=== PATIENT | female | born 1975 | race African-American/Black ===

== ENCOUNTER 2016-08-29 15:17 | Observation (INO) ==
[2016-08-29 15:48] LABS: Basophils % 0.5 %; Eosinophils # 0.2 K/mcL (0.0-0.6); Eosinophils % 2.9 %; Hematocrit 35.2 % (35.3-44.9); Hemoglobin 12.2 g/dL (11.5-15.4); Immature Granulocytes % 0.2 % (0-4); Lymphocytes # 2.9 K/mcL (0.6-4.6); Lymphocytes % 43.5 %; Mean Corpuscular HGB Conc 34.7 g/dL (31.6-35.5); Mean Corpuscular Hemoglobin 29.8 pg (28.0-33.3); Mean Corpuscular Volume 86.1 fL (83.0-100.0); Mean Platelet Volume 12.4 fL (9.4-12.4); Monocytes # 0.5 K/mcL (0.0-1.3); Monocytes % 8.2 %; Platelet Count 161 K/mcL (140-400); Red Blood Count 4.09 M/mcL (3.82-4.97); Red Cell Distribution Width 12.9 % (11.5-14.5); Segmented Neutrophils % 44.7 %
[2016-08-29] MEDS ORDERED: Aspirin 81 MG TAB.CHEW PO ONE (15:53)
[2016-08-29 16:00] LABS: BUN/Creatinine Ratio 8 (6-26); Blood Urea Nitrogen 8 mg/dL (7-20); Calcium 8.9 mg/dL (8.6-10.8); Carbon Dioxide 28 mEq/L (19-29); Chloride 105 mEq/L (98-109); Glucose 220 mg/dL (70-99); Osmolality,Calculated 287 (280-300); Potassium 3.9 mEq/L (3.5-4.5); Sodium 136 mEq/L (136-145); eGFR For African Americans > 60 (> 60); eGFR For Non-African Americans > 60 (> 60)
--- NOTE | 2016-08-29 16:24 | Emergency Department Note ---
Disposition Clinical Impression: Chest pain Qualifiers: Chest pain type: unspecified Qualified Code(s): R07.9 - Chest pain, unspecified Diabetes Qualifiers: Diabetes mellitus type: type 2 Diabetes mellitus complication status: without complication Diabetes mellitus skilled nursing insulin use: unspecified skilled nursing insulin use status Qualified Code(s): E11.9 - Type 2 diabetes mellitus without complications Disposition: Admitted As Inpatient Condition: Good Chest Pain HPI - General Chief Complaint: ED Chest Pain Stated Complaint: Chest pain, "high blood pressure" stomach pain. Time Seen by Provider: 08/29/16 15:21 Source: patient Vital Signs Reviewed: Yes Nursing Notes Reviewed: Yes - History of Present Illness HPI Narrative: She has a history of diabetes who presents with chest pain which began at 3:00 today and is constant and it was worse with exertion when she walked into the emergency department. Does have dyspnea with exertion. No diaphoresis. Does have a pleuritic aspect. No radiation. Does have chronic swelling of the lower extremities. No numbness of the lower extremities but does have numbness of both arms which is chronic from her peripheral neuropathy which she says is from her diabetes. No fever, does have some blurred vision. No rhinorrhea, cough, sneeze, blood in the urine or stool. 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 These are not new. Social history: No smoking, alcohol, drugs. Family history: Positive for heart disease with her father Severity scale (1-10): 9 - Related Data Home Medications Medication Instructions Recorded Confirmed Atorvastatin [Lipitor] 10 mg PO HS 08/29/16 08/29/16 Buspirone HCl [Buspar] 10 mg PO TID PRN 08/29/16 08/29/16 CloNIDine Patch [Catapres-TTS] 0.3 mg TD QWEEK 08/29/16 08/29/16 Clopidogrel [Plavix] 75 mg PO DAILY 08/29/16 08/29/16 Cyclosporine [Restasis Multidose] 1 drop OP BID 08/29/16 08/29/16 Cyprohepatdine [Periactin] 4 mg PO QID 08/29/16 08/29/16 Diclofenac Potassium 50 mg PO BID 08/29/16 08/29/16 Diltiazem HCl [Diltiazem 24Hr Cd] 360 mg PO QAM 08/29/16 08/29/16 Ergocalciferol (VITAMIN D2) 50,000 unit PO QWEEK 08/29/16 08/29/16 [Vitamin D2] Gabapentin [Neurontin] 300 mg PO TID 08/29/16 08/29/16 Insulin ASPART [NovoLOG] 10 unit SQ TIDWM 08/29/16 08/29/16 Insulin Glargine [Lantus] 60 unit SQ BID 08/29/16 08/29/16 Latanoprost [Xalatan] 1 drop OP HS 08/29/16 08/29/16 Levothyroxine [Synthroid] 25 mcg PO 0630 08/29/16 08/29/16 Lisinopril [Zestril] 40 mg PO HS 08/29/16 08/29/16 Lubiprostone [Amitiza] 24 mcg PO DAILY PRN 08/29/16 08/29/16 Naproxen [Naprosyn] 500 mg PO BID 08/29/16 08/29/16 Omeprazole [PriLOSEC] 40 mg PO BID 08/29/16 08/29/16 SUMAtriptan succinate [Imitrex] 6 mg SQ ONCE PRN 08/29/16 08/29/16 Sennosides/Docusate Sodium [Senna 1 each PO DAILY 08/29/16 08/29/16 Plus] Sertraline [Zoloft] 150 mg PO HS 08/29/16 08/29/16 Timolol [Betimol] 1 drop OP TID 08/29/16 08/29/16 hydroCHLOROthiazide 25 mg PO DAILY 08/29/16 08/29/16 [Hydrochlorothiazide] Allergies Allergy/AdvReac Type Severity Reaction Status Date / Time latex Allergy Rash Verified 08/29/16 15:31 Review of Systems: Does have chronic swelling of the lower extremities. No numbness of the lower extremities but does have numbness of both arms which is chronic from her peripheral neuropathy which she says is from her diabetes. No fever, does have some blurred vision. No rhinorrhea, cough, sneeze, blood in the urine or stool. 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 These are not new. Chest Pain PMH - Past Medical History Medical history: Reports: arthritis, diabetes, GERD, glaucoma, hyperlipidemia, hypertension, migraine, thyroid disease Psychiatric history: Reports: no psych history MINERAL TECHNOLOGIST history: Reports: no MINERAL TECHNOLOGIST history - Social History Smoking Status: Never smoker Alcohol use: Reports: none Drug use: Reports: none Physical Exam CONSTITUTIONAL: Well-appearing; well-nourished; A&O X 3, in no apparent distress HEAD: Normocephalic; atraumatic EYES: PERRL, no scleral icterus NOSE: The nose is normal in appearance without rhinorrhea NECK: No JVD or distended neck veins RESP: Normal chest excursion with respiration; breath sounds clear and equal bilaterally; no wheezes, rhonchi, or rales CARD: Regular rhythm, without murmurs, rub or gallop ABD: Non-distended; non-tender, soft, without rigidity, rebound or guarding,no pulsatile mass CHEST: + pain with palpation lower sternum which does cause some facial wincing SKIN: Normal for age and race; warm and dry without diaphoresis ; no apparent lesions EXTREMITIES: Pulses are 2 plus and equal times 4 extremities, no peripheral edema or calf muscle pain - General General appearance: alert, in no apparent distress Course Vital Signs Temperature 98.4 F 08/29/16 15:26 Pulse Rate 81 08/29/16 15:26 Respiratory Rate 16 08/29/16 15:26 Blood Pressure 191/116 08/29/16 15:26 O2 Sat by Pulse Oximetry 100 08/29/16 15:26 Temperature 97.9 F 08/29/16 19:32 Pulse Rate 69 08/29/16 19:32 Respiratory Rate 18 08/29/16 19:32 Blood Pressure 153/93 08/29/16 19:32 O2 Sat by Pulse Oximetry 99 08/29/16 19:32 Oxygen Delivery Oxygen Delivery Room Air Chest Pain - MDM Narrative Medical decision making narrative: Initial labs are reviewed. Additional labs including troponin, BNP, d-dimer are pending. The patient's pain is recent onset and she has not had identical pain in the past this is concerning for cardiac disease as it is exertional and she has associated dyspnea and does have a history of diabetes. I did review the initial EKG which does show normal sinus rhythm with a rate of 79 and does have some nonspecific inferior ST and T changes 1625 - Medical Records Medical records reviewed: Yes I reviewed the patient's medical records. - Lab Data Result diagrams: 08/29/16 15:40 08/29/16 15:40 Lab Results 08/29/16 08/29/16 08/29/16 Range/Units 15:40 15:40 15:40 WBC 6.6 (4.3-11.1) K/mcL RBC 4.09 (3.82-4.97) M/mcL Hgb 12.2 (11.5-15.4) g/dL Hct 35.2 L (35.3-44.9) % MCV 86.1 (83.0-100.0) fL MCH 29.8 (28.0-33.3) pg MCHC 34.7 (31.6-35.5) g/dL RDW 12.9 (11.5-14.5) % Plt Count 161 (140-400) K/mcL MPV 12.4 (9.4-12.4) fL Immature Gran % 0.2 (0-4) % Seg Neutrophils % 44.7 % Lymphocytes % 43.5 % Monocytes % 8.2 % Eosinophils % 2.9 % Basophils % 0.5 % Neutrophils # 3.0 (1.6-8.9) K/mcL Lymphocytes # 2.9 (0.6-4.6) K/mcL Monocytes # 0.5 (0.0-1.3) K/mcL Eosinophils # 0.2 (0.0-0.6) K/mcL Basophils # 0.0 (0.0-0.2) K/mcL D-Dimer (0-500) ng/mLFEU Sodium 136 (136-145) mEq/L Potassium 3.9 (3.5-4.5) mEq/L Chloride 105 (98-109) mEq/L Carbon Dioxide 28 (19-29) mEq/L BUN 8 (7-20) mg/dL Creatinine 0.95 (0.57-1.11) mg/dL Est GFR ( Amer) > 60 (> 60) Est GFR (Non-Af Amer) > 60 (> 60) BUN/Creatinine Ratio 8 (6-26) Glucose 220 H (70-99) mg/dL Calculated Osmolality 287 (280-300) Calcium 8.9 (8.6-10.8) mg/dL Troponin I 0.01 (0-0.03) ng/mL B-Natriuretic Peptide (0-100) pg/mL 08/29/16 08/29/16 Range/Units 15:40 15:40 WBC (4.3-11.1) K/mcL RBC (3.82-4.97) M/mcL Hgb (11.5-15.4) g/dL Hct (35.3-44.9) % MCV (83.0-100.0) fL MCH (28.0-33.3) pg MCHC (31.6-35.5) g/dL RDW (11.5-14.5) % Plt Count (140-400) K/mcL MPV (9.4-12.4) fL Immature Gran % (0-4) % Seg Neutrophils % % Lymphocytes % % Monocytes % % Eosinophils % % Basophils % % Neutrophils # (1.6-8.9) K/mcL Lymphocytes # (0.6-4.6) K/mcL Monocytes # (0.0-1.3) K/mcL Eosinophils # (0.0-0.6) K/mcL Basophils # (0.0-0.2) K/mcL D-Dimer 579 H (0-500) ng/mLFEU Sodium (136-145) mEq/L Potassium (3.5-4.5) mEq/L Chloride (98-109) mEq/L Carbon Dioxide (19-29) mEq/L BUN (7-20) mg/dL Creatinine (0.57-1.11) mg/dL Est GFR ( Amer) (> 60) Est GFR (Non-Af Amer) (> 60) BUN/Creatinine Ratio (6-26) Glucose (70-99) mg/dL Calculated Osmolality (280-300) Calcium (8.6-10.8) mg/dL Troponin I (0-0.03) ng/mL B-Natriuretic Peptide 41 (0-100) pg/mL - Radiology Data Radiology results reviewed: Yes I reviewed the patient's radiology results. Chest X-Ray 08/29/16 15:54 IMPRESSION: Cardiomegaly without acute cardiopulmonary process. D/ / 08/29/2016 16:20:23 Yong Rangel MD / olegario Interpreting Provider: Yong Rangel MD Chest CTA 08/29/16 16:26 IMPRESSION: No evidence of pulmonary embolism or acute pulmonary abnormality. D/ / Yong Rangel MD / Yong Rangel MD Interpreting Provider: Yong Rangel MD - EKG Data EKG attestation: Yes I reviewed and interpreted this EKG.
[2016-08-29] MEDS ORDERED: *HR* Labetalol 20 MG/4 ML SYRINGE IVP ONE (17:08)
[2016-08-29] MEDS ORDERED: GI Cocktail 40 ML EACH PO ONE (17:47)
--- NOTE | 2016-08-29 21:36 | Internal Med History&Physical ---
Date of Encounter: 08/29/16 Time of Encounter: 21:30 Assessment and Plan (1) Chest pain Current visit: Yes Status: Acute Atypical in nature; possibly secondary to GERD in setting of anxiety Claimed to have a stress test roughly a year ago, so no urgent need to repeat at this time; will obtain old records from [facility] Given her lower extremity edema and cardiomegaly on CXR, will obtain echocardiogram Initial troponins negative, will trend x2 Continue home Plavix, increase dose of Lipitor and add SL Nitro PRN for chest pain Qualifiers: Chest pain type: unspecified Qualified Code(s): R07.9 - Chest pain, unspecified (2) Resistant hypertension Current visit: Yes Status: Chronic She is currently on 4 anti-hypertensives and presented with SBP of 191 which was treated with Labetalol in ED Will continue home meds for now and add on PO Hydralazine 25 mg Q8hr If BP remains ucontrolled, may consider switching medications prior to discharge 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 (3) Insulin dependent diabetes mellitus Current visit: Yes Status: Chronic Will continue patient's basal insulin dose at half of her home dose, 30 units BID Lantus on top of ACHS SSI Check A1c in the AM (4) GERD (gastroesophageal reflux disease) Current visit: Yes Status: Chronic Likely cause of her chest pain in setting of anxiety Will continue home Omeprazole Qualifiers: Qualified Code(s): K21.9 - Gastro-esophageal reflux disease without esophagitis (5) Hypothyroidism Current visit: Yes Status: Chronic Continue home synthroid dose Check TSH in AM Qualifiers: Qualified Code(s): E03.9 - Hypothyroidism, unspecified (6) DVT prophylaxis Current visit: Yes Status: Acute Heparin 5000 units BID Internal Medicine - H&P: HPI Chief complaint: chest pain Admitted From: Home Plans for Post Hospital Care: Home History of present illness: Ms. Benavidez is a 41 year old female who presents to emergency department with chest pain. She states it started around 3 PM earlier today while she was just laying down and is substernal in nature describes as stabbing. She also describes shortness of breath with exertion. Patient is to having chronic chest pain which was thought to be related to her GERD. She states this chest pain is different than usual as it is has been more persistent. She recently moved [place] one month ago and previously saw a endless bed drum sander in [place] for angina, and has been cleared for bariatric surgery. She had a stress test about a year ago which was negative for ischemia and is currently on Plavix and multiple blood pressure medications. She states that her blood pressure has been uncontrolled at home over the past month since moving. Patient also complains of lower extremity edema which has been chronic as well but is related to position. Patient reports nausea and vomiting almost daily, and is related to food. Past Med Surg Social Fam HX - Past Medical History Medical history: arthritis, diabetes, GERD, glaucoma, hyperlipidemia, hypertension, migraine, thyroid disease Psychiatric history: no psych history - Social History Smoking Status: Never smoker Smokeless Tobacco Status: No Alcohol use: none Drug use: none - Family History Father Adopted: [place]: MONI Family Member Ethnicity: Non- Living Status: Age at : 70 Hx Family Cardiac Disorders: Yes (HTN / HEART DISEASE) Hx Family Respiratory Disorders: No Hx Family Cancer: No Hx Family GI Disorders: No Hx Family Genitourinary Disorders: No Hx Family Endocrine Disorder: No Hx Family Musculoskeletal Disorders: No Hx Family Neuromuscular Disorders: No Hx Family Neurologic Disorders: No Hx Family HEENT Disorders: No Hx Family Autoimmune Disorders: No Hx Family Reproductive Disorders: No Hx Family Psychosocial Disorders: No Hx Family Medical Disorders: No Internal Medicine - H&P: Meds Atorvastatin [Lipitor] 10 mg PO HS 08/29/16 [History] Buspirone HCl [Buspar] 10 mg PO TID PRN 08/29/16 [History] CloNIDine Patch [Catapres-TTS] 0.3 mg TD QWEEK 08/29/16 [History] Clopidogrel [Plavix] 75 mg PO DAILY 08/29/16 [History] Cyclosporine [Restasis Multidose] 1 drop OP BID 08/29/16 [History] Cyprohepatdine [Periactin] 4 mg PO QID 08/29/16 [History] Diclofenac Potassium 50 mg PO BID 08/29/16 [History] Diltiazem HCl [Diltiazem 24Hr Cd] 360 mg PO QAM 08/29/16 [History] Ergocalciferol (VITAMIN D2) [Vitamin D2] 50,000 unit PO QWEEK 08/29/16 [History] Gabapentin [Neurontin] 300 mg PO TID 08/29/16 [History] Insulin ASPART [NovoLOG] 10 unit SQ TIDWM 08/29/16 [History] Insulin Glargine [Lantus] 60 unit SQ BID 08/29/16 [History] Latanoprost [Xalatan] 1 drop OP HS 08/29/16 [History] Levothyroxine [Synthroid] 25 mcg PO 0630 08/29/16 [History] Lisinopril [Zestril] 40 mg PO HS 08/29/16 [History] Lubiprostone [Amitiza] 24 mcg PO DAILY PRN 08/29/16 [History] Naproxen [Naprosyn] 500 mg PO BID 08/29/16 [History] Omeprazole [PriLOSEC] 40 mg PO BID 08/29/16 [History] SUMAtriptan succinate [Imitrex] 6 mg SQ ONCE PRN 08/29/16 [History] Sennosides/Docusate Sodium [Senna Plus] 1 each PO DAILY 08/29/16 [History] Sertraline [Zoloft] 150 mg PO HS 08/29/16 [History] Timolol [Betimol] 1 drop OP TID 08/29/16 [History] hydroCHLOROthiazide [Hydrochlorothiazide] 25 mg PO DAILY 08/29/16 [History] Allergies latex Allergy (Verified 08/29/16 15:31) Rash All Systems PM: A 10-system review of systems was performed and is negative for pertinent findings except as documented above in the HPI. - Constitutional Constitutional: no chills, no fever(s), no night sweats - EENT Eyes: no change in vision, no discharge, no pain, no photophobia Ears: no ear discharge, no ear pain, no tinnitus Nose, mouth and throat: no dysphagia, no nasal discharge, no neck pain, no sore throat - Cardiovascular Cardiovascular ROS IM: chest pain, dyspnea on exertion, no diaphoresis, no dyspnea, no lightheadedness, no palpitations, no syncope - Respiratory Respiratory: dyspnea on exertion, pain on inspiration, no cough, no dyspnea, no wheezing, no excessive phlegm production - Gastrointestinal Gastrointestinal: abdominal pain (lower bilaterally), constipation, nausea, vomiting, no diarrhea, no hematemesis, no hematochezia, no melena - Genitourinary Genitourinary: urinary hesitancy, no change in urinary stream, no dysuria, no flank pain, no hematuria - Musculoskeletal Musculoskeletal ROS IM: numbness, tingling - Integumentary Integumentary IM: no rash, no unusual bruising - Neurological Neurological ROS: headache(s), numbness, tingling, no confusion, no convulsions , no focal weakness, no tremor(s) - Constitutional Vitals: Temp Pulse Resp BP Pulse Ox 97.9 F 69 18 153/93 99 08/29/16 19:32 08/29/16 19:32 08/29/16 19:32 08/29/16 19:32 08/29/16 19:32 General appearance: Present: cooperative, morbidly obese, pleasant, no acute distress, answers questions appropriately - Head Head exam: Present: atraumatic, normocephalic - Eye Eye exam: Present: PERRL, conjuntiva pink, sclera anicteric - Neck Neck exam general surgery: Present: supple, trachea midline. Absent: lymphadenopathy - Respiratory Respiratory exam: Present: CTAB. Absent: accessory muscle use, rales, rhonchi, wheezes - Cardiovascular Cardiovascular exam: Present: distant heart sounds, RRR, +S1, +S2. Absent: diastolic murmur, gallop, rubs, systolic murmur - GI/Abdominal GI/Abdominal exam: Present: normal bowel sounds, soft, tenderness (lower bilaterally), no peritoneal signs. Absent: distended - Extremities Exam Extremities exam: Present: pedal edema (trace pitting bilaterally), warm, radial pulses palpable and symetrical. Absent: calf tenderness, cyanotic - Neurological Exam Neurological exam: Present: alert, no focal deficits. Absent: facial droop, speech deficit - Skin Skin exam: Present: dry, intact Internal Med - H&P Results - Labs CBC & Chem 7: 08/29/16 15:40 08/29/16 15:40
[2016-08-29] MEDS ORDERED: Dextrose Gel 15 GM PO PRN ×2 (21:55)
[2016-08-29] MEDS ORDERED: Ondansetron ODT 4 MG TAB.RAPDIS SL PRN (21:55)
[2016-08-29] MEDS ORDERED: Nitroglycerin 0.4 MG TAB.SUBL SL PRN (21:55)
[2016-08-29] MEDS ORDERED: Naloxone 0.4 MG/ML INJ IVP PRN (21:55)
[2016-08-29] MEDS ORDERED: D5% in Water 1,000 ML IVC PRN (21:55)
[2016-08-29] MEDS ORDERED: *HR* Dextrose 50 % in Water (Syg) 50 ML SYRINGE IVP PRN (21:55)
[2016-08-29] MEDS ORDERED: Acetaminophen 325 MG TABLET PO PRN (21:55)
[2016-08-29] MEDS ORDERED: Lubiprostone [Amitiza] 24 MCG PO PRN (21:59)
[2016-08-29] MEDS ORDERED: Ipratropium/Albuterol Neb 3 ML IH PRN (21:59)
[2016-08-29] MEDS ORDERED: CloNIDine Patch 0.3 MG PATCH (WEEKLY) TD SCH (22:00)
[2016-08-29] MEDS: Insulin LISPRO 300 UNITS/3 ML VIAL SQ SCH (22:34)
[2016-08-29] MEDS: hydrALAZINE 25 MG TABLET PO SCH (23:00)
[2016-08-29] MEDS: Lisinopril 20 MG TABLET PO SCH (23:00)
[2016-08-30] MEDS: *HR* OxyCODONE/APAP 5/325 TABLET PO PRN ×3 (03:59→21:39)
[2016-08-30 06:02] LABS: Basophils % 0.3 %; Eosinophils # 0.2 K/mcL (0.0-0.6); Eosinophils % 2.3 %; Hematocrit 34.8 % (35.3-44.9); Hemoglobin 11.8 g/dL (11.5-15.4); Immature Granulocytes % 0.1 % (0-4); Lymphocytes # 2.9 K/mcL (0.6-4.6); Lymphocytes % 41.6 %; Mean Corpuscular HGB Conc 33.9 g/dL (31.6-35.5); Mean Corpuscular Hemoglobin 29.4 pg (28.0-33.3); Mean Corpuscular Volume 86.6 fL (83.0-100.0); Monocytes # 0.6 K/mcL (0.0-1.3); Monocytes % 8.3 %; Neutrophils # 3.3 K/mcL (1.6-8.9); Platelet Count 136 K/mcL (140-400); Red Blood Count 4.02 M/mcL (3.82-4.97); Red Cell Distribution Width 12.9 % (11.5-14.5); Segmented Neutrophils % 47.4 %
[2016-08-30 06:05] LABS: BUN/Creatinine Ratio 10 (6-26); Blood Urea Nitrogen 9 mg/dL (7-20); Calcium 9.1 mg/dL (8.6-10.8); Carbon Dioxide 26 mEq/L (19-29); Chloride 104 mEq/L (98-109); Chol/HDL Ratio 4.5 (0-4.9); Cholesterol 189 mg/dL (< 200); Glucose 258 mg/dL (70-99); HDL Cholesterol 42 mg/dL (40-59); Hemoglobin A1C 9.3 %; LDL Cholesterol,Calculated 123 mg/dL (0-99); Osmolality,Calculated 290 (280-300); Potassium 4.1 mEq/L (3.5-4.5); Sodium 136 mEq/L (136-145); Triglycerides 121 mg/dL (< 150); eGFR For African Americans > 60 (> 60); eGFR For Non-African Americans > 60 (> 60)
[2016-08-30] MEDS: hydrALAZINE 25 MG TABLET PO SCH ×3 (06:18→21:40)
[2016-08-30] MEDS: *HR* Heparin 5,000 UNIT/ML VIAL SQ SCH ×2 (06:18→17:10)
[2016-08-30] MEDS: Levothyroxine 25 MCG TABLET PO SCH (06:18)
[2016-08-30 06:27] LABS: Thyroid Stimulating Hormone 2.265 mcIU/mL (0.350-4.840)
[2016-08-30] MEDS: Insulin LISPRO 300 UNITS/3 ML VIAL SQ SCH ×4 (08:50→21:41)
[2016-08-30] MEDS: Gabapentin 300 MG CAPSULE PO SCH ×3 (08:51→21:40)
[2016-08-30] MEDS: Diltiazem CD (24hr) 180 MG CAPSULE PO SCH (08:51)
[2016-08-30] MEDS: Sennosides/Docusate Sodium TABLET PO SCH (08:51)
[2016-08-30] MEDS: Insulin DETEMIR 100 UNIT/ML X5UNITS SQ SCH ×2 (08:58→21:40)
[2016-08-30] MEDS ORDERED: NON-FORMULARY MEDICATION 1 EACH EACH (Insulin Glargine [Lantus] 30 UNIT) SQ SCH (09:00)
[2016-08-30] MEDS: hydroCHLOROthiazide 25 MG TABLET PO SCH (09:03)
[2016-08-30] MEDS: Cyprohepatdine 4 MG TABLET PO SCH ×4 (10:05→21:40)
[2016-08-30 10:29] LABS: Bilirubin,Urine Negative (Negative); Blood,Urine Negative (Negative); Clarity,Urine Clear (Clear); Color,Urine Yellow (Yellow); Glucose,Urine (UA) >=1000 mg/dL (Normal); Ketones,Urine Negative (Negative); Leukocyte Esterase,Urine Negative (Negative); Nitrite,Urine Negative (Negative); Protein,Urine Negative (Neg-Trace); Specific Gravity,Urine 1.024 (1.010-1.025); Urobilinogen,Urine Normal (Normal)
--- NOTE | 2016-08-30 17:16 | Electrocardiograph Report ---
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
--- NOTE | 2016-08-30 18:46 | Internal Med Progress Note ---
Date of Encounter: 08/30/16 Time of Encounter: 15:30 - Assessment and plan (1) Chest pain Current Visit: Yes Status: Acute Assessment and plan: Patient stating she never actually had any chest pain. She is complaining of lower abdominal pain. Chest x-ray negative. CTA negative. Troponins negative 3. Echocardiogram unremarkable with ejection fraction of 60% and mild diastolic dysfunction. Low suspicion for acute coronary syndrome, we will investigate abdominal etiologies. Qualifiers: Chest pain type: unspecified Qualified Code(s): R07.9 - Chest pain, unspecified (2) Abdominal pain Current Visit: Yes Status: Acute Assessment and plan: Patient complaining of severe pain across her lower abdomen. He states the pain is constant. She states her last bowel movement was 2 days ago and that it was normal. Patient stating she has chronic constipation but this pain feels different. She is not currently sexually active. She had PAD 15 years ago but no further issues. No indication to perform a pelvic examination at this time. We will obtain an abdominal CT to further evaluate. Urinalysis was negative except for glucose. Qualifiers: Abdominal location: lower abdomen, unspecified Qualified Code(s): R10.30 - Lower abdominal pain, unspecified (3) Insulin dependent diabetes mellitus Current Visit: Yes Status: Chronic Assessment and plan: Uncontrolled with an A1c of 9.3%. Continue sliding scale while admitted. (4) Resistant hypertension Current Visit: Yes Status: Chronic Assessment and plan: Hypertensive at times however the patient is still in severe pain. We will continue to address her pain and we will adjust her antihypertensive medications if indicated once her pain is better controlled. (5) DVT prophylaxis Current Visit: Yes Status: Acute Assessment and plan: Subcutaneous heparin (6) Hypothyroidism Current Visit: Yes Status: Chronic Assessment and plan: TSH normal Qualifiers: Hypothyroidism type: unspecified Qualified Code(s): E03.9 - Hypothyroidism , unspecified (7) GERD (gastroesophageal reflux disease) Current Visit: Yes Status: Chronic Assessment and plan: Denies current symptoms Qualifiers: Esophagitis presence: without esophagitis Qualified Code(s): K21.9 - Gastro -esophageal reflux disease without esophagitis (8) Morbid obesity with BMI of 50.0-59.9, adult Current Visit: Yes Status: Chronic - Subjective Interval history: Patient seen and examined. On examination, patient initially asleep supine in bed. Patient awakened easily to voice and complained of pain across her lower abdomen. She denies chest pain or shortness of breath. - Constitutional Vitals: Temp Pulse Resp BP Pulse Ox 98.2 F 65 16 152/73 93 08/30/16 18:35 08/30/16 18:35 08/30/16 18:35 08/30/16 18:35 08/30/16 18:35 General appearance: Present: cooperative, morbidly obese, pleasant, no acute distress, answers questions appropriately - Head Head exam: Present: atraumatic, normocephalic - Eye Eye exam: Present: PERRL, conjuntiva pink, sclera anicteric Pupils: Present: PERRL - Neck Neck exam general surgery: Present: supple, trachea midline. Absent: lymphadenopathy - Respiratory Respiratory exam: Present: CTAB. Absent: accessory muscle use, rales, respiratory distress, rhonchi, wheezes - Cardiovascular Cardiovascular exam: Present: RRR, +S1, +S2. Absent: diastolic murmur, gallop, rubs, systolic murmur - GI/Abdominal GI/Abdominal exam: Present: normal bowel sounds, soft, tenderness (lower abd), no peritoneal signs. Absent: distended - Extremities Exam Extremities exam: Present: warm, radial pulses palpable and symetrical. Absent : calf tenderness, cyanotic, pedal edema - Neurological Exam Neurological exam: Present: alert, CN II-XII intact, oriented X3, no focal deficits, strengths equal and symetr throughout. Absent: pronater drift, facial droop, speech deficit - Skin Skin exam: Present: dry, intact, pallor, warm Internal Medicine: Result - Labs CBC & Chem 7: 08/30/16 05:10 08/31/16 04:00 Labs: Short CBC 08/30/16 Range/Units 05:10 WBC 7.0 (4.3-11.1) K/mcL Hgb 11.8 (11.5-15.4) g/dL Hct 34.8 L (35.3-44.9) % Plt Count 136 L (140-400) K/mcL Neutrophils # 3.3 (1.6-8.9) K/mcL BMP 08/30/16 05:10 Sodium 136 Potassium 4.1 Chloride 104 Carbon Dioxide 26 BUN 9 Creatinine 0.90 Glucose 258 H Calcium 9.1 Cardiac Enzymes 08/29/16 08/30/16 Range/Units 22:12 05:10 Troponin I 0.00 0.00 (0-0.03) ng/mL Urine 08/30/16 Range/Units 10:19 Urine Color Yellow (Yellow) Urine Clarity Clear (Clear) Urine pH 6.0 (5.0-8.0) pH Units Ur Specific [place] 1.024 (1.010-1.025) Urine Protein Negative (Neg-Trace) mg/dL Urine Glucose (UA) >=1000 H (Normal) mg/dL - ABG Interpretation ABG results: PT/INR, D-dimer D-Dimer 579 ng/mLFEU (0-500) H 08/29/16 15:40 - VTE Reasons for not Prescribing Prophylaxis: Treatment not Indicated - Low risk for VTE Consult Discharge Plan - Plan Referrals: Saira Greer [Other]
[2016-08-30] MEDS ORDERED: *HR* Morphine 2 MG/ML SYRINGE IVP PRN (18:51)
[2016-08-30] MEDS: Lisinopril 20 MG TABLET PO SCH (21:40)
[2016-08-31] MEDS: *HR* OxyCODONE/APAP 5/325 TABLET PO PRN ×3 (03:59→23:26)
[2016-08-31 05:00] LABS: Alanine Aminotransferase 10 Units/L (0-55); Albumin 2.8 g/dL (3.5-5.0); Albumin/Globulin Ratio 0.7 (1.1-2.2); Alkaline Phosphatase 82 Units/L (38-126); Amylase 46 Units/L (25-125); Aspartate Amino Transferase 8 Units/L (5-34); BUN/Creatinine Ratio 11 (6-26); Bilirubin,Direct 0.2 mg/dL (0.0-0.5); Bilirubin,Indirect 0.4 mg/dL (0.0-1.2); Bilirubin,Total 0.6 mg/dL (0.2-1.2); Blood Urea Nitrogen 10 mg/dL (7-20); Calcium 8.9 mg/dL (8.6-10.8); Carbon Dioxide 27 mEq/L (19-29); Chloride 104 mEq/L (98-109); Globulin 3.9 g/dL (2.4-3.5); Glucose 216 mg/dL (70-99); Lipase < 10 Units/L (8-78); Osmolality,Calculated 290 (280-300); Potassium 4.1 mEq/L (3.5-4.5); Sodium 137 mEq/L (136-145); Total Protein 6.7 g/dL (6.0-8.3); eGFR For African Americans > 60 (> 60); eGFR For Non-African Americans > 60 (> 60)
[2016-08-31] MEDS: Levothyroxine 25 MCG TABLET PO SCH (05:55)
[2016-08-31] MEDS: *HR* Heparin 5,000 UNIT/ML VIAL SQ SCH ×2 (05:55→17:27)
[2016-08-31] MEDS: hydrALAZINE 25 MG TABLET PO SCH ×3 (05:55→21:23)
[2016-08-31] MEDS: Insulin LISPRO 300 UNITS/3 ML VIAL SQ SCH ×4 (08:23→21:22)
[2016-08-31] MEDS: Sennosides/Docusate Sodium TABLET PO SCH (09:23)
[2016-08-31] MEDS: hydroCHLOROthiazide 25 MG TABLET PO SCH (09:23)
[2016-08-31] MEDS: Diltiazem CD (24hr) 180 MG CAPSULE PO SCH (09:23)
[2016-08-31] MEDS: Gabapentin 300 MG CAPSULE PO SCH ×3 (09:23→21:24)
[2016-08-31] MEDS: Insulin DETEMIR 100 UNIT/ML X5UNITS SQ SCH ×2 (09:28→21:22)
[2016-08-31] MEDS: Cyprohepatdine 4 MG TABLET PO SCH ×4 (09:29→21:24)
[2016-08-31] MEDS: Simethicone 80 MG TAB.CHEW PO SCH ×3 (12:35→21:23)
--- NOTE | 2016-08-31 14:52 | Internal Med Progress Note ---
Date of Encounter: 08/31/16 Time of Encounter: 10:30 - Assessment and plan (1) Chest pain Current Visit: Yes Status: Acute Assessment and plan: Patient stating she never actually had any chest pain. She is complaining of lower abdominal pain. Chest x-ray negative. CTA negative. Troponins negative 3. Echocardiogram unremarkable with ejection fraction of 60% and mild diastolic dysfunction. Low suspicion for acute coronary syndrome, we will investigate abdominal etiologies. Qualifiers: Chest pain type: unspecified Qualified Code(s): R07.9 - Chest pain, unspecified (2) Abdominal pain Current Visit: Yes Status: Acute Assessment and plan: Patient complaining of severe pain across her lower abdomen. He states the pain is constant. She states her last bowel movement was 3 days ago and that it was normal and she is now requesting an increase in her [place] to have a bowel movement. Patient stating she has chronic constipation but this pain feels different. She is not currently sexually active. She had PID 15 years ago but no further issues. No indication to perform a pelvic examination at this time. We will obtain an abdominal CT to further evaluate. Urinalysis was negative except for glucose. Abdominal CT revealing soft tissue density in the cecum that could be a mass or it could be a stool ball. Will give her an enema and reevaluate. 3mm nodule noted to RML- patient low risk nonsmoker- followup outpatient. Will await for her to move her bowels then repeat an acute abdominal series to rule out a mass. Possible discharge pending clinical outcomes. ITS Impressions Abdomen/Pelvis CT 08/30/16 18:49 IMPRESSION: 1. No acute abnormality in the abdomen or pelvis. 2. 2.3 cm probable uterine fundal fibroid. 3. 4.2 cm soft tissue density in the cecum most likely represents a stool ball although a mass is not excluded. Consider nonemergent evaluation with CT with rectal contrast or colonoscopy. 4. 3 mm nodule in the right middle lobe. Further evaluation could be obtained with nonemergent CT chest without contrast. D/ / Phi Ken MD / Phi Ken MD Interpreting Provider: Phi Ken MD . (3) Insulin dependent diabetes mellitus Current Visit: Yes Status: Chronic Assessment and plan: Uncontrolled with an A1c of 9.3%. Continue sliding scale while admitted. (4) Resistant hypertension Current Visit: Yes Status: Chronic Assessment and plan: Borderline Hypertensive at this time, however the patient is still in pain. We will continue to address her pain and we will adjust her antihypertensive medications if indicated once her pain is better controlled. (5) DVT prophylaxis Current Visit: Yes Status: Acute Assessment and plan: Subcutaneous heparin (6) Hypothyroidism Current Visit: Yes Status: Chronic Assessment and plan: TSH normal (7) GERD (gastroesophageal reflux disease) Current Visit: Yes Status: Chronic Assessment and plan: Denies current symptoms (8) Morbid obesity with BMI of 50.0-59.9, adult Current Visit: Yes Status: Chronic - Subjective Interval history: Patient seen and examined. On examination, patient awake and sitting upright in bed. She states that she feels better than yesterday but still is having pain across her lower abdomen. She states that she has been able to eat a bit, but is endorsing a decreased appetite. - Constitutional Vitals: Temp Pulse Resp BP Pulse Ox 98.3 F 72 16 117/72 98 08/31/16 11:24 08/31/16 11:24 08/31/16 11:24 08/31/16 11:24 08/31/16 11:24 General appearance: Present: cooperative, A&O X 3, morbidly obese, pleasant, no acute distress, answers questions appropriately - Head Head exam: Present: atraumatic, normocephalic - Eye Eye exam: Present: PERRL, conjuntiva pink, sclera anicteric Pupils: Present: PERRL - Neck Neck exam general surgery: Present: supple, trachea midline. Absent: lymphadenopathy - Respiratory Respiratory exam: Present: decreased breath sounds. Absent: accessory muscle use, rales, respiratory distress, rhonchi, wheezes - Cardiovascular Cardiovascular exam: Present: RRR, +S1, +S2. Absent: diastolic murmur, gallop, rubs, systolic murmur - GI/Abdominal GI/Abdominal exam: Present: hyperactive bowel sounds, soft, tenderness (lower abd), no peritoneal signs. Absent: distended - Extremities Exam Extremities exam: Present: warm, radial pulses palpable and symetrical. Absent : calf tenderness, cyanotic, pedal edema - Neurological Exam Neurological exam: Present: alert, CN II-XII intact, oriented X3, no focal deficits, strengths equal and symetr throughout. Absent: pronater drift, facial droop, speech deficit - Skin Skin exam: Present: dry, intact, pallor, warm Internal Medicine: Result - Labs CBC & Chem 7: 08/30/16 05:10 08/31/16 04:00 Labs: BMP 08/31/16 04:00 Sodium 137 Potassium 4.1 Chloride 104 Carbon Dioxide 27 BUN 10 Creatinine 0.93 Glucose 216 H Calcium 8.9 Liver Function 08/31/16 Range/Units 04:00 Total Bilirubin 0.6 (0.2-1.2) mg/dL Direct Bilirubin 0.2 (0.0-0.5) mg/dL AST 8 (5-34) Units/L ALT 10 (0-55) Units/L Alkaline Phosphatase 82 (38-126) Units/L Albumin 2.8 L (3.5-5.0) g/dL - ABG Interpretation ABG results: PT/INR, D-dimer D-Dimer 579 ng/mLFEU (0-500) H 08/29/16 15:40 - Impressions Impressions Abdomen/Pelvis CT 08/30/16 18:49 IMPRESSION: 1. No acute abnormality in the abdomen or pelvis. 2. 2.3 cm probable uterine fundal fibroid. 3. 4.2 cm soft tissue density in the cecum most likely represents a stool ball although a mass is not excluded. Consider nonemergent evaluation with CT with rectal contrast or colonoscopy. 4. 3 mm nodule in the right middle lobe. Further evaluation could be obtained with nonemergent CT chest without contrast. D/ / Phi Ken MD / Phi Ken MD Interpreting Provider: Phi Ken MD - VTE Reasons for not Prescribing Prophylaxis: Treatment not Indicated - Low risk for VTE Consult Discharge Plan - Plan Referrals: Saira Greer [Other]
[2016-08-31] MEDS: Bisacodyl 10 MG RECTAL SUPPOSITORY RC SCH (15:58)
[2016-08-31] MEDS: Lisinopril 20 MG TABLET PO SCH (21:24)
[2016-09-01] MEDS: *HR* Heparin 5,000 UNIT/ML VIAL SQ SCH (05:42)
[2016-09-01] MEDS: Levothyroxine 25 MCG TABLET PO SCH (05:42)
[2016-09-01] MEDS: hydrALAZINE 25 MG TABLET PO SCH ×2 (05:42→14:07)
[2016-09-01] MEDS: Insulin LISPRO 300 UNITS/3 ML VIAL SQ SCH ×2 (08:14→12:27)
[2016-09-01] MEDS: Gabapentin 300 MG CAPSULE PO SCH ×2 (08:15→14:07)
[2016-09-01] MEDS: Diltiazem CD (24hr) 180 MG CAPSULE PO SCH (08:15)
[2016-09-01] MEDS: Cyprohepatdine 4 MG TABLET PO SCH ×2 (08:15→14:07)
[2016-09-01] MEDS: hydroCHLOROthiazide 25 MG TABLET PO SCH (08:16)
[2016-09-01] MEDS: Simethicone 80 MG TAB.CHEW PO SCH ×2 (08:16→14:07)
[2016-09-01] MEDS: Sennosides/Docusate Sodium TABLET PO SCH (08:16)
[2016-09-01] MEDS: Insulin DETEMIR 100 UNIT/ML X5UNITS SQ SCH (09:36)
[2016-09-01] MEDS: Bisacodyl 10 MG RECTAL SUPPOSITORY RC SCH (09:36)
--- NOTE | 2016-09-01 10:49 | Discharge Summary ---
Date of Encounter: 09/01/16 Time of Encounter: 09:30 - Discharge Diagnosis (1) Chest pain Priority: Primary Status: Ruled-out Comments: Patient stating she never actually had any chest pain. She complained of lower abdominal pain. Chest x-ray negative. CTA negative. Troponins negative 3. Echocardiogram unremarkable with ejection fraction of 60% and mild diastolic dysfunction. Low suspicion for acute coronary syndrome Qualifiers: Chest pain type: unspecified Qualified Code(s): R07.9 - Chest pain, unspecified (2) Abdominal pain Priority: Primary Status: Acute Comments: Patient moved her bowels several times and repeat imaging unremarkable. Likely secondary to severe constipation. Follow-up outpatient. (3) Insulin dependent diabetes mellitus Priority: Secondary Status: Chronic Comments: Uncontrolled with an A1c of 9.3%. Follow-up outpatient (4) Resistant hypertension Priority: Secondary Status: Chronic Comments: Normotensive on day of discharge. Check blood pressure daily at home, and follow-up outpatient. (5) DVT prophylaxis Priority: Primary Status: Acute Comments: Subcutaneous had been while admitted (6) Hypothyroidism Priority: Secondary Status: Chronic Comments: TSH normal (7) GERD (gastroesophageal reflux disease) Priority: Secondary Status: Chronic Comments: Denied current symptoms (8) Morbid obesity with BMI of 50.0-59.9, adult Priority: Secondary Status: Chronic - Discharge Medications Prescriptions: Cyclobenzaprine [Flexeril] 10 mg PO BID PRN #20 tablet PRN Reason: Spasms hydrALAZINE [HydrALAZINE] 25 mg PO Q8H #90 tab Sennosides/Docusate Sodium [Senna Plus] 1 each PO BID #60 Simethicone [Gas-X] 80 mg PO TID PRN #30 PRN Reason: bloating Home Medications: Atorvastatin [Lipitor] 10 mg PO HS 08/29/16 [History] Buspirone HCl [Buspar] 10 mg PO TID PRN 08/29/16 [History] CloNIDine Patch [Catapres-Tts] 0.3 mg TD QWEEK 08/29/16 [History] Clopidogrel [Plavix] 75 mg PO DAILY 08/29/16 [History] Cyclosporine [Restasis Multidose] 1 drop OP BID 08/29/16 [History] Cyprohepatdine [Periactin] 4 mg PO QID 08/29/16 [History] Diclofenac Potassium 50 mg PO BID 08/29/16 [History] Diltiazem HCl [Diltiazem 24Hr Cd] 360 mg PO QAM 08/29/16 [History] Ergocalciferol (VITAMIN D2) [Vitamin D2] 50,000 unit PO QWEEK 08/29/16 [History] Gabapentin [Neurontin] 300 mg PO TID 08/29/16 [History] Insulin ASPART [NovoLOG] 10 unit SQ TIDWM 08/29/16 [History] Insulin Glargine [Lantus] 60 unit SQ BID 08/29/16 [History] Latanoprost [Xalatan] 1 drop OP HS 08/29/16 [History] Levothyroxine [Synthroid] 25 mcg PO 0630 08/29/16 [History] Lisinopril [Zestril] 40 mg PO HS 08/29/16 [History] Lubiprostone [Amitiza] 24 mcg PO DAILY PRN 08/29/16 [History] Naproxen [Naprosyn] 500 mg PO BID 08/29/16 [History] Omeprazole [PriLOSEC] 40 mg PO BID 08/29/16 [History] SUMAtriptan succinate [Imitrex] 6 mg SQ ONCE PRN 08/29/16 [History] Sertraline [Zoloft] 150 mg PO HS 08/29/16 [History] Timolol [Betimol] 1 drop OP TID 08/29/16 [History] hydroCHLOROthiazide [Hydrochlorothiazide] 25 mg PO DAILY 08/29/16 [History] Cyclobenzaprine [Flexeril] 10 mg PO BID PRN #20 tablet 09/01/16 [Rx] Sennosides/Docusate Sodium [Senna Plus] 1 each PO BID #60 09/01/16 [Rx] Simethicone [Gas-X] 80 mg PO TID PRN #30 09/01/16 [Rx] hydrALAZINE [HydrALAZINE] 25 mg PO Q8H #90 tab 09/01/16 [Rx] Allergies/Adverse Reactions: Allergies latex Allergy (Verified 08/29/16 15:31) Rash Procedures/tests Complete & Pending: Procedures Performed prior 72 hours Category Date Time Status CT abd pelvis w iv no oral [CT] Routine Cat Scan 08/30/16 18:49 Completed EV echocardiogram Routine Y 08/30/16 21:55 Completed Date of admission: 08/29/16 18:11 Primary care physician: Saira Greer Discharging clinician: Esther Goff Anticipated date of discharge: 09/01/16 - Patient Status Disposition: Home, Self-Care Condition: Good Functional capacity at discharge: independent ambulation Overall status at discharge: patient is back to baseline - Discharge Instructions Follow Up With: Saira Greer [Other] Additional Instructions: Follow-up with primary care provider within one to 2 weeks, check blood pressure daily and keep a log - Diet and Activity Activity: increase activity as tolerated Diet: diabetic diet, low fat, low cholesterol, low salt diet Hospital course: Ms. Benavidez is a 41 year old female with past medical history of uncontrolled diabetes, GERD, glaucoma, hyperlipidemia, hypertension, migraines, hypothyroidism, never smoker, morbid obesity BMI 55. Patient presented to the emergency department with chest pain. Patient stating that she was laying down on the day of presentation when she began to experience substernally located chest pain described as stabbing. Patient also endorsed shortness of breath with exertion. Patient thought she was having chronic chest pain secondary to her chronic GERD but she states this chest pain is different than her usual pain and has been more persistent. Of note, she [place] to [place] one month prior to presentation and she has seen her network technician in [place] for angina and she had been cleared for bariatric surgery. She also had a negative stress test 1 year ago. Blood pressure has been difficult to control outpatient despite multiple antihypertensive medications. Workup in the emergency department unremarkable. Chest x-ray negative. CTA negative. Patient was admitted to the hospitalist service for further evaluation and management. Troponins negative 3. Echocardiogram unremarkable with ejection fraction of 60% and mild diastolic dysfunction. ACS ruled out. In further conversation with the patient, she stated that she never actually had chest pain but rather she had severe pain across her lower abdomen. She stated the pain was constant and felt different than her regular constipation pain. Abdominal CT obtained which revealed a soft tissue density in the cecum that could either be a mass or could be a stool ball. She was then given an enema, had several bowel movements, and repeat imaging was negative for acute processes suggestive of a stool ball rather than a mass. She also had a pulmonary nodule-never smoker, follow up outpatient. Patient also had lower back spasms with her constipation she was given a short supply of muscle relaxants. She was able to tolerate a regular diet while admitted. Urinalysis was negative except for glucose. Regarding her blood pressure, hydralazine was added to her regimen and she was normotensive on discharge. She was discharged home in stable condition with close outpatient follow-up recommended. ITS Impressions Chest X-Ray 08/29/16 15:54 IMPRESSION: Cardiomegaly without acute cardiopulmonary process. D/ / 08/29/2016 16:20:23 Yong Rangel MD / olegario Interpreting Provider: Yong Rangel MD Chest CTA 08/29/16 16:26 IMPRESSION: No evidence of pulmonary embolism or acute pulmonary abnormality. D/ / Yong Rangel MD / Yong Rangel MD Interpreting Provider: Yong Rangle MD Abdomen/Pelvis CT 08/30/16 18:49 IMPRESSION: 1. No acute abnormality in the abdomen or pelvis. 2. 2.3 cm probable uterine fundal fibroid. 3. 4.2 cm soft tissue density in the cecum most likely represents a stool ball although a mass is not excluded. Consider nonemergent evaluation with CT with rectal contrast or colonoscopy. 4. 3 mm nodule in the right middle lobe. Further evaluation could be obtained with nonemergent CT chest without contrast. D/ / Phi Ken MD / Phi Ken MD Interpreting Provider: Phi Ken MD Chest/Abdomen X-ray 08/31/16 16:22 IMPRESSION: Unremarkable bowel gas pattern. D/ / Juvencio Moreira MD / Juvencio Moreira MD Interpreting Provider: Juvencio Moreira MD Echocardiogram impressions: LVEF 60%. Normal LV chamber size and wall thickness. Not all LV segments were well visualized, but overall function appears normal. Mild left ventricular diastolic dysfunction. Grossly, mildly dilated right ventricle with normal function. No evidence of pulmonary hypertension identified. RVSP not well obtained and could be underestimated. Unable to estimate RVSP due to lack of TR jet. No significant valvular dysfunction. - Time Spent with Patient Total time spent providing and/or coordinating discharge services: - Constitutional Vitals: Temp Pulse Resp BP Pulse Ox 98.1 F 67 16 112/73 97 09/01/16 07:05 09/01/16 07:05 09/01/16 07:05 09/01/16 07:05 09/01/16 07:05 General appearance: Present: cooperative, morbidly obese, pleasant, no acute distress, answers questions appropriately - Head Head exam: Present: atraumatic, normocephalic - Eye Eye exam: Present: PERRL, conjuntiva pink, sclera anicteric Pupils: Present: PERRL - Neck Neck exam general surgery: Present: supple, trachea midline. Absent: lymphadenopathy - Respiratory Respiratory exam: Present: decreased breath sounds. Absent: accessory muscle use, rales, respiratory distress, rhonchi, wheezes - Cardiovascular Cardiovascular exam: Present: RRR, +S1, +S2. Absent: diastolic murmur, gallop, rubs, systolic murmur - GI/Abdominal GI/Abdominal exam: Present: distended, hyperactive bowel sounds, soft, tenderness (Diffuse, lower abdomen), no peritoneal signs - Extremities Exam Extremities exam: Present: warm, radial pulses palpable and symetrical. Absent : calf tenderness, cyanotic, pedal edema - Neurological Exam Neurological exam: Present: alert, CN II-XII intact, normal gait, oriented X3, no focal deficits, strengths equal and symetr throughout. Absent: pronater drift, facial droop, speech deficit - Skin Skin exam: Present: dry, intact, normal color, warm - VTE Reasons for not Prescribing Prophylaxis: Treatment not Indicated - Low risk for VTE
[2016-09-01 11:18] VITALS: BP 129/66
== END 2016-09-01 14:55 | disposition home or self-care (01) ==
LOC: 3BNU 15:17 → EMEROO 15:17 → 3BNU 19:11
PROVIDERS: ADMIT Internal Medicine; ATTEND Nurse Practitioner Family

== ENCOUNTER 2019-01-20 15:47 | Inpatient (IN) ==
[2019-01-20] MEDS ORDERED: Isovue-370 500 ML BOTTLE IVP ONE (16:21)
[2019-01-20] MEDS ORDERED: *HR* Promethazine 25 MG/ML VIAL IVP ONE (16:24)
[2019-01-20] MEDS ORDERED: niCARdipine 20 MG/200 ML MLS IVC SCH (16:30)
[2019-01-20] MEDS ORDERED: niCARdipine 20 MG/200 ML MLS IVC ONE (16:32)
[2019-01-20 16:47] LABS: Basophils % 0.2 %; Eosinophils # 0.1 K/mcL (0.0-0.6); Eosinophils % 1.2 %; Hematocrit 35.4 % (35.3-44.9); Hemoglobin 12.4 g/dL (11.5-15.4); Immature Granulocytes % 0.2 % (0-4); Lymphocytes % 40.4 %; Mean Corpuscular Hemoglobin 31.2 pg (28.0-33.3); Mean Corpuscular Volume 88.9 fL (83.0-100.0); Mean Platelet Volume 13.6 fL (9.4-12.4); Monocytes # 0.5 K/mcL (0.0-1.3); Monocytes % 9.8 %; Neutrophils # 2.4 K/mcL (1.6-8.9); Platelet Count 119 K/mcL (140-400); Red Blood Count 3.98 M/mcL (3.82-4.97); Red Cell Distribution Width 12.3 % (11.5-14.5); Segmented Neutrophils % 48.2 %
[2019-01-20 16:58] LABS: INR 1.3; Prothrombin Time 14.3 Seconds (9.4-12.1)
[2019-01-20 17:00] LABS: Activated Partial Thrombo Time 33.4 Seconds (26.0-36.0)
[2019-01-20 17:08] LABS: BUN/Creatinine Ratio 7 (6-26); Blood Urea Nitrogen 6 mg/dL (6-20); Calcium 8.8 mg/dL (8.6-10.3); Carbon Dioxide 28 mEq/L (23-29); Chloride 108 mEq/L (98-107); Glucose 165 mg/dL (70-105); Osmolality,Calculated 287 (280-300); Sodium 138 mEq/L (136-145); Troponin I < 0.03 ng/mL (< 0.04); eGFR For African Americans > 60 (> 60); eGFR For Non-African Americans > 60 (> 60)
[2019-01-20 17:25] LABS: Bilirubin,Urine Negative (Negative); Blood,Urine Large (Negative); Clarity,Urine Cloudy (Clear); Color,Urine Red (Yellow); Glucose,Urine (UA) Normal (Normal); Ketones,Urine Trace mg/dL (Negative); Leukocyte Esterase,Urine Trace (Negative); Nitrite,Urine Negative (Negative); Protein,Urine 30 mg/dL (Neg-Trace); Specific Gravity,Urine 1.015 (1.010-1.025); Urobilinogen,Urine Normal (Normal)
[2019-01-20 17:29] LABS: Amphetamine Screen,Urine Negative ng/mL (Cutoff=1000); Barbiturate Screen,Urine Negative ng/mL (Cutoff=200); Benzodiazepines Screen,Urine Negative ng/mL (Cutoff=200); Cannabinoid Screen,Urine Negative ng/mL (Cutoff = 50); Cocaine Screen,Urine Negative ng/mL (Cutoff= 300); Opiate Screen,Urine Negative ng/mL (Cutoff=300); Phencyclidine Screen,Urine Negative ng/mL (Cutoff=25)
[2019-01-20 17:33] LABS: Bacteria,Urine None Seen per hpf (None-Few); Hyaline Casts,Urine None Seen per lpf (None-Few); RBC,Urine TNTC per hpf (0-3); Squamous Epithelial Cell,Urine Many per lpf (None-Few)
[2019-01-20] MEDS ORDERED: Naloxone 0.4 MG/ML INJ IVP PRN (22:56)
[2019-01-21] MEDS ORDERED: Acetaminophen/Butalbital/CaffeineTABLET PO ONE (01:01)
[2019-01-21] MEDS ORDERED: D5% in Water 1,000 ML IVC PRN ×2 (01:02→09:16)
[2019-01-21] MEDS ORDERED: *HR* Dextrose 50 % in Water (Syg) 50 ML SYRINGE IVP PRN ×2 (01:02→09:16)
[2019-01-21] MEDS ORDERED: Dextrose Gel 15 GM/37.5 ML TUBE PO PRN ×4 (01:02→09:16)
[2019-01-21] MEDS ORDERED: (Lubiprostone [Amitiza] 24 MCG) PO PRN (01:04)
[2019-01-21] MEDS ORDERED: SUMAtriptan 6 MG/0.5 ML SQ PRN (01:04)
[2019-01-21] MEDS ORDERED: ETONOGESTREL 68 MG SQ SCH (01:15)
[2019-01-21 04:13] LABS: Bilirubin,Urine Negative (Negative); Blood,Urine Large (Negative); Clarity,Urine Cloudy (Clear); Color,Urine Red (Yellow); Glucose,Urine (UA) Normal (Normal); Ketones,Urine Negative (Negative); Leukocyte Esterase,Urine Negative (Negative); Nitrite,Urine Negative (Negative); PH,Urine 7.5 pH Units (5.0-8.0); Protein,Urine Trace mg/dL (Neg-Trace); Specific Gravity,Urine 1.015 (1.010-1.025); Urobilinogen,Urine Normal (Normal)
[2019-01-21 04:14] LABS: Bacteria,Urine None Seen per hpf (None-Few); Hyaline Casts,Urine None Seen per lpf (None-Few); RBC,Urine TNTC per hpf (0-3); Squamous Epithelial Cell,Urine Many per lpf (None-Few)
[2019-01-21] MEDS ORDERED: Nitroglycerin 0.4 MG TAB.SUBL SL ONE (05:00)
[2019-01-21] MEDS: Levothyroxine 25 MCG TABLET PO SCH (05:10)
[2019-01-21 05:55] LABS: Basophils % 0.6 %; Monocytes % 9.2 %; Red Cell Distribution Width 12.3 % (11.5-14.5)
[2019-01-21 05:56] LABS: Eosinophils # 0.1 K/mcL (0.0-0.6); Eosinophils % 1.4 %; Hematocrit 33.9 % (35.3-44.9); Hemoglobin 11.9 g/dL (11.5-15.4); Immature Granulocytes % 0.2 % (0-4); Immature Platelets 22.2 % (1.1-6.1); Lymphocytes # 2.3 K/mcL (0.6-4.6); Lymphocytes % 46.4 %; Mean Corpuscular HGB Conc 35.1 g/dL (31.6-35.5); Mean Corpuscular Hemoglobin 31.2 pg (28.0-33.3); Mean Corpuscular Volume 88.7 fL (83.0-100.0); Monocytes # 0.5 K/mcL (0.0-1.3); Neutrophils # 2.1 K/mcL (1.6-8.9); Red Blood Count 3.82 M/mcL (3.82-4.97); Segmented Neutrophils % 42.2 %; White Blood Count 4.9 K/mcL (4.3-11.1)
[2019-01-21] MEDS ORDERED: Insulin LISPRO 300 UNITS/3 ML VIAL SQ SCH (06:00)
[2019-01-21 06:17] LABS: Alanine Aminotransferase 8 Units/L (7-52); Albumin 3.4 g/dL (3.5-5.7); Albumin/Globulin Ratio 1.1 (1.1-2.2); Alkaline Phosphatase 98 Units/L (34-104); Aspartate Amino Transferase 9 Units/L (13-39); BUN/Creatinine Ratio 8 (6-26); Bilirubin,Total 0.6 mg/dL (0.3-1.0); Blood Urea Nitrogen 6 mg/dL (6-20); Calcium 8.8 mg/dL (8.6-10.3); Carbon Dioxide 24 mEq/L (23-29); Chloride 107 mEq/L (98-107); Glucose 146 mg/dL (70-105); Osmolality,Calculated 292 (280-300); Potassium 3.9 mEq/L (3.5-5.1); Sodium 141 mEq/L (136-145); Total Protein 6.4 g/dL (6.4-8.9); eGFR For African Americans > 60 (> 60); eGFR For Non-African Americans > 60 (> 60)
[2019-01-21] MEDS: *HR* Heparin 5,000 UNIT/ML VIAL SQ SCH ×3 (07:21→20:57)
[2019-01-21 07:23] LABS: Platelet Count 84 K/mcL (140-400)
[2019-01-21] MEDS ORDERED: Acetaminophen/Butalbital/CaffeineTABLET PO PRN (08:00)
[2019-01-21] MEDS ORDERED: Sucralfate 1 GM TABLET PO SCH (09:00)
[2019-01-21] MEDS ORDERED: (Chlorzoxazone 500 MG) PO SCH (09:00)
[2019-01-21] MEDS ORDERED: CloNIDine Patch 0.3 MG PATCH (WEEKLY) TD SCH (09:00)
[2019-01-21] MEDS ORDERED: Diltiazem CD (24hr) 180 MG CAPSULE PO SCH (09:00)
[2019-01-21] MEDS ORDERED: Celecoxib 200 MG CAPSULE PO SCH (09:00)
[2019-01-21] MEDS ORDERED: (Cyclosporine [Restasis Multidose] 1 DROP) OP SCH (09:00)
[2019-01-21] MEDS ORDERED: Cholecalciferol (D-3) 1,000 UNIT (25MCG) TABLET PO SCH (09:00)
[2019-01-21] MEDS ORDERED: NON-FORMULARY MEDICATION 1 EACH EACH (Pantoprazole Sodium [Protonix] 40 MG) PO SCH (09:00)
[2019-01-21] MEDS: Multivit/Ca/Min/Fe/FA 1 TAB TABLET PO SCH (09:24)
[2019-01-21] MEDS: carvediloL 6.25 MG TABLET PO SCH ×2 (09:24→16:44)
[2019-01-21] MEDS: Cyanocobalamin (B-12) 1,000 MCG TABLET PO SCH (09:25)
[2019-01-21] MEDS: Loratadine 10 MG TABLET PO SCH (09:25)
[2019-01-21] MEDS: Gabapentin 300 MG CAPSULE PO SCH ×3 (09:25→20:58)
[2019-01-21] MEDS: Sennosides/Docusate Sodium TABLET PO SCH (09:25)
[2019-01-21] MEDS: FLUoxetine 20 MG CAPSULE PO SCH (09:25)
[2019-01-21] MEDS: Lactulose Oral Soln 20 GM/30 ML UDC PO SCH ×2 (09:26→20:56)
[2019-01-21] MEDS: Bisacodyl 10 MG RECTAL SUPPOSITORY RC SCH (09:26)
[2019-01-21] MEDS: Lisinopril 20 MG TABLET PO SCH (09:39)
[2019-01-21] MEDS ORDERED: Artificial Tears SOLN 15 ML BOTTLE BOTH EYES PRN (10:52)
[2019-01-21] MEDS: Cyprohepatdine 4 MG TABLET PO SCH ×3 (10:54→20:58)
[2019-01-21] MEDS: Sucralfate 1 GM TABLET PO SCH ×3 (12:42→20:58)
[2019-01-21] MEDS: Insulin DETEMIR 100 UNIT/ML X5UNITS SQ SCH (12:42)
[2019-01-21] MEDS: Insulin LISPRO 300 UNITS/3 ML VIAL SQ SCH ×5 (12:47→20:33)
[2019-01-21 17:54] LABS: Complement C3 136 mg/dL (87-200)
[2019-01-21 20:54] LABS: Protein/Creatinine Ratio,Urine 0.24 mg/mg (0.00-0.20)
[2019-01-21] MEDS: amLODIPine 5 MG TABLET PO SCH (20:58)
[2019-01-21] MEDS: Latanoprost 2.5 ML BOTTLE RIGHT EYE SCH (21:00)
[2019-01-22] MEDS: *HR* Heparin 5,000 UNIT/ML VIAL SQ SCH ×2 (05:20→12:16)
[2019-01-22] MEDS: Levothyroxine 25 MCG TABLET PO SCH (07:03)
[2019-01-22 07:40] LABS: Basophils % 0.4 %; Eosinophils # 0.1 K/mcL (0.0-0.6); Eosinophils % 1.8 %; Hematocrit 33.4 % (35.3-44.9); Hemoglobin 11.3 g/dL (11.5-15.4); Lymphocytes # 2.6 K/mcL (0.6-4.6); Lymphocytes % 51.6 %; Mean Corpuscular HGB Conc 33.8 g/dL (31.6-35.5); Mean Corpuscular Hemoglobin 30.9 pg (28.0-33.3); Mean Corpuscular Volume 91.3 fL (83.0-100.0); Mean Platelet Volume 13.8 fL (9.4-12.4); Monocytes # 0.5 K/mcL (0.0-1.3); Monocytes % 9.9 %; Neutrophils # 1.8 K/mcL (1.6-8.9); Platelet Count 101 K/mcL (140-400); Red Blood Count 3.66 M/mcL (3.82-4.97); Red Cell Distribution Width 11.9 % (11.5-14.5); Segmented Neutrophils % 36.3 %
[2019-01-22] MEDS: Lactulose Oral Soln 20 GM/30 ML UDC PO SCH (07:43)
[2019-01-22] MEDS: Insulin LISPRO 300 UNITS/3 ML VIAL SQ SCH ×6 (07:43→17:25)
[2019-01-22] MEDS: Bisacodyl 10 MG RECTAL SUPPOSITORY RC SCH (07:43)
[2019-01-22] MEDS: Etonogestrel [Nexplanon] 68 MG SQ SCH (07:49)
[2019-01-22 07:57] LABS: % Iron Saturation 13 % (15-50); BUN/Creatinine Ratio 13 (6-26); Blood Urea Nitrogen 11 mg/dL (6-20); Calcium 8.5 mg/dL (8.6-10.3); Carbon Dioxide 25 mEq/L (23-29); Chloride 107 mEq/L (98-107); Iron 41 mcg/dL (50-170); Potassium 3.7 mEq/L (3.5-5.1); Sodium 141 mEq/L (136-145); Transferrin 220 mg/dL (203-362); eGFR For African Americans > 60 (> 60); eGFR For Non-African Americans > 60 (> 60)
[2019-01-22] MEDS: Cholecalciferol (D-3) 1,000 UNIT (25MCG) TABLET PO SCH (07:58)
[2019-01-22] MEDS: Cyanocobalamin (B-12) 1,000 MCG TABLET PO SCH (07:58)
[2019-01-22] MEDS: Lisinopril 20 MG TABLET PO SCH (07:59)
[2019-01-22] MEDS: Multivit/Ca/Min/Fe/FA 1 TAB TABLET PO SCH (07:59)
[2019-01-22] MEDS: Sennosides/Docusate Sodium TABLET PO SCH (07:59)
[2019-01-22] MEDS: carvediloL 6.25 MG TABLET PO SCH (07:59)
[2019-01-22] MEDS: Loratadine 10 MG TABLET PO SCH (07:59)
[2019-01-22] MEDS: FLUoxetine 20 MG CAPSULE PO SCH (07:59)
[2019-01-22] MEDS: Cyprohepatdine 4 MG TABLET PO SCH ×2 (07:59→15:20)
[2019-01-22] MEDS: Gabapentin 300 MG CAPSULE PO SCH ×2 (07:59→15:20)
[2019-01-22] MEDS: Sucralfate 1 GM TABLET PO SCH ×3 (07:59→15:20)
[2019-01-22 08:20] LABS: Folate 6.8 ng/mL (3.0-16.0)
[2019-01-22 08:51] LABS: Ferritin < 8 ng/mL (10-120); Glucose 119 mg/dL (70-105); Osmolality,Calculated 293 (280-300)
[2019-01-22 12:05] LABS: Estimated Average Glucose 146 mg/dl
[2019-01-22] MEDS: Insulin DETEMIR 100 UNIT/ML X5UNITS SQ SCH (12:16)
[2019-01-22] MEDS ORDERED: carvediloL 6.25 MG TABLET PO SCH (17:00)
[2019-01-22] MEDS: Iron Sucrose Complex 250 MG in 0.9 % Sodium Chloride 250 ML IVPB SCH (18:18)
[2019-01-23] MEDS: amLODIPine 5 MG TABLET PO SCH ×2 (00:46→23:53)
[2019-01-23] MEDS: Lactulose Oral Soln 20 GM/30 ML UDC PO SCH ×3 (00:46→23:53)
[2019-01-23] MEDS: Cyprohepatdine 4 MG TABLET PO SCH ×3 (00:47→16:31)
[2019-01-23] MEDS: *HR* Heparin 5,000 UNIT/ML VIAL SQ SCH ×4 (00:52→23:55)
[2019-01-23] MEDS: Sucralfate 1 GM TABLET PO SCH ×5 (00:52→23:53)
[2019-01-23] MEDS: Acetaminophen 325 MG TABLET PO PRN ×3 (00:55→23:54)
[2019-01-23] MEDS: Gabapentin 300 MG CAPSULE PO SCH ×4 (00:56→23:53)
[2019-01-23] MEDS: Insulin LISPRO 300 UNITS/3 ML VIAL SQ SCH ×8 (01:00→23:55)
[2019-01-23] MEDS: Latanoprost 2.5 ML BOTTLE RIGHT EYE SCH ×2 (01:01→23:55)
[2019-01-23 06:56] LABS: Basophils % 0.3 %; Eosinophils # 0.1 K/mcL (0.0-0.6); Hematocrit 32.9 % (35.3-44.9); Hemoglobin 11.7 g/dL (11.5-15.4); Immature Granulocytes % 0.2 % (0-4); Lymphocytes # 2.4 K/mcL (0.6-4.6); Lymphocytes % 41.6 %; Mean Corpuscular HGB Conc 35.6 g/dL (31.6-35.5); Mean Corpuscular Hemoglobin 31.5 pg (28.0-33.3); Mean Corpuscular Volume 88.4 fL (83.0-100.0); Mean Platelet Volume 13.6 fL (9.4-12.4); Monocytes # 0.6 K/mcL (0.0-1.3); Monocytes % 10.6 %; Neutrophils # 2.7 K/mcL (1.6-8.9); Platelet Count 127 K/mcL (140-400); Red Blood Count 3.72 M/mcL (3.82-4.97); Segmented Neutrophils % 46.3 %; White Blood Count 5.8 K/mcL (4.3-11.1)
[2019-01-23] MEDS: Levothyroxine 25 MCG TABLET PO SCH (07:07)
[2019-01-23 07:16] LABS: BUN/Creatinine Ratio 14 (6-26); Blood Urea Nitrogen 12 mg/dL (6-20); Calcium 8.7 mg/dL (8.6-10.3); Carbon Dioxide 25 mEq/L (23-29); Chloride 104 mEq/L (98-107); Glucose 136 mg/dL (70-105); Magnesium 2.2 mg/dL (1.6-2.6); Osmolality,Calculated 292 (280-300); Potassium 3.8 mEq/L (3.5-5.1); Sodium 140 mEq/L (136-145); eGFR For African Americans > 60 (> 60); eGFR For Non-African Americans > 60 (> 60)
[2019-01-23] MEDS: Etonogestrel [Nexplanon] 68 MG SQ SCH (08:57)
[2019-01-23] MEDS: Bisacodyl 10 MG RECTAL SUPPOSITORY RC SCH (08:58)
[2019-01-23] MEDS: Loratadine 10 MG TABLET PO SCH (09:07)
[2019-01-23] MEDS: Lisinopril 20 MG TABLET PO SCH (09:07)
[2019-01-23] MEDS: Cholecalciferol (D-3) 1,000 UNIT (25MCG) TABLET PO SCH (09:07)
[2019-01-23] MEDS: Cyanocobalamin (B-12) 1,000 MCG TABLET PO SCH (09:07)
[2019-01-23] MEDS: Multivit/Ca/Min/Fe/FA 1 TAB TABLET PO SCH (09:07)
[2019-01-23] MEDS: Sennosides/Docusate Sodium TABLET PO SCH (09:08)
[2019-01-23] MEDS: FLUoxetine 20 MG CAPSULE PO SCH (09:08)
[2019-01-23] MEDS: Insulin DETEMIR 100 UNIT/ML X5UNITS SQ SCH (09:15)
[2019-01-23] MEDS: Iron Sucrose Complex 250 MG in 0.9 % Sodium Chloride 250 ML IVPB SCH (09:29)
[2019-01-24] MEDS: Cyprohepatdine 4 MG TABLET PO SCH ×4 (00:15→21:17)
[2019-01-24] MEDS: Levothyroxine 25 MCG TABLET PO SCH (07:15)
[2019-01-24] MEDS: *HR* Heparin 5,000 UNIT/ML VIAL SQ SCH ×3 (07:15→21:16)
[2019-01-24] MEDS: Lactulose Oral Soln 20 GM/30 ML UDC PO SCH ×2 (08:21→21:19)
[2019-01-24] MEDS: Multivit/Ca/Min/Fe/FA 1 TAB TABLET PO SCH (08:21)
[2019-01-24] MEDS: Gabapentin 300 MG CAPSULE PO SCH ×3 (08:21→21:17)
[2019-01-24] MEDS: Loratadine 10 MG TABLET PO SCH (08:21)
[2019-01-24] MEDS: Lisinopril 20 MG TABLET PO SCH (08:21)
[2019-01-24] MEDS: Cholecalciferol (D-3) 1,000 UNIT (25MCG) TABLET PO SCH (08:21)
[2019-01-24] MEDS: Sucralfate 1 GM TABLET PO SCH ×4 (08:21→21:16)
[2019-01-24] MEDS: Bisacodyl 10 MG RECTAL SUPPOSITORY RC SCH (08:22)
[2019-01-24] MEDS: Sennosides/Docusate Sodium TABLET PO SCH (08:22)
[2019-01-24] MEDS: Etonogestrel [Nexplanon] 68 MG SQ SCH (08:22)
[2019-01-24] MEDS: FLUoxetine 20 MG CAPSULE PO SCH (08:22)
[2019-01-24] MEDS: Cyanocobalamin (B-12) 1,000 MCG TABLET PO SCH (08:23)
[2019-01-24] MEDS: Insulin LISPRO 300 UNITS/3 ML VIAL SQ SCH ×7 (08:25→21:22)
[2019-01-24] MEDS: Insulin DETEMIR 100 UNIT/ML X5UNITS SQ SCH (08:30)
[2019-01-24] MEDS: Acetaminophen 325 MG TABLET PO PRN (08:38)
[2019-01-24 11:55] LABS: Basophils % 0.4 %; Eosinophils # 0.1 K/mcL (0.0-0.6); Eosinophils % 1.9 %; Hemoglobin 11.2 g/dL (11.5-15.4); Immature Granulocytes % 0.2 % (0-4); Lymphocytes % 38.6 %; Mean Corpuscular HGB Conc 33.9 g/dL (31.6-35.5); Mean Corpuscular Hemoglobin 31.3 pg (28.0-33.3); Mean Corpuscular Volume 92.2 fL (83.0-100.0); Mean Platelet Volume 13.1 fL (9.4-12.4); Monocytes # 0.7 K/mcL (0.0-1.3); Monocytes % 12.8 %; Neutrophils # 2.4 K/mcL (1.6-8.9); Platelet Count 122 K/mcL (140-400); Red Blood Count 3.58 M/mcL (3.82-4.97); Red Cell Distribution Width 12.3 % (11.5-14.5); Segmented Neutrophils % 46.1 %; White Blood Count 5.2 K/mcL (4.3-11.1)
[2019-01-24 12:10] LABS: BUN/Creatinine Ratio 12 (6-26); Blood Urea Nitrogen 11 mg/dL (6-20); Carbon Dioxide 26 mEq/L (23-29); Chloride 107 mEq/L (98-107); Glucose 114 mg/dL (70-105); Osmolality,Calculated 288 (280-300); Potassium 3.7 mEq/L (3.5-5.1); Sodium 139 mEq/L (136-145); eGFR For African Americans > 60 (> 60); eGFR For Non-African Americans > 60 (> 60)
[2019-01-24] MEDS: amLODIPine 5 MG TABLET PO SCH (21:16)
[2019-01-24] MEDS: Latanoprost 2.5 ML BOTTLE RIGHT EYE SCH (21:17)
[2019-01-25] MEDS: Levothyroxine 25 MCG TABLET PO SCH (05:45)
[2019-01-25] MEDS: *HR* Heparin 5,000 UNIT/ML VIAL SQ SCH ×3 (05:45→20:10)
[2019-01-25] MEDS: Acetaminophen 325 MG TABLET PO PRN ×2 (05:45→20:09)
[2019-01-25 06:25] LABS: Basophils % 0.2 %; Eosinophils # 0.1 K/mcL (0.0-0.6); Eosinophils % 2.1 %; Hematocrit 34.4 % (35.3-44.9); Hemoglobin 11.8 g/dL (11.5-15.4); Immature Granulocytes % 0.2 % (0-4); Lymphocytes # 2.9 K/mcL (0.6-4.6); Lymphocytes % 51.2 %; Mean Corpuscular HGB Conc 34.3 g/dL (31.6-35.5); Mean Corpuscular Hemoglobin 31.6 pg (28.0-33.3); Mean Corpuscular Volume 92.2 fL (83.0-100.0); Mean Platelet Volume 13.2 fL (9.4-12.4); Monocytes # 0.6 K/mcL (0.0-1.3); Monocytes % 10.1 %; Platelet Count 161 K/mcL (140-400); Red Blood Count 3.73 M/mcL (3.82-4.97); Red Cell Distribution Width 12.2 % (11.5-14.5); Segmented Neutrophils % 36.2 %; White Blood Count 5.6 K/mcL (4.3-11.1)
[2019-01-25] MEDS ORDERED: Regadenoson 0.4 MG/5 ML SYRINGE IVP ONE (06:36)
[2019-01-25 06:45] LABS: BUN/Creatinine Ratio 13 (6-26); Blood Urea Nitrogen 10 mg/dL (6-20); Calcium 8.8 mg/dL (8.6-10.3); Carbon Dioxide 25 mEq/L (23-29); Chloride 105 mEq/L (98-107); Glucose 98 mg/dL (70-105); Osmolality,Calculated 291 (280-300); Potassium 3.8 mEq/L (3.5-5.1); Sodium 141 mEq/L (136-145); eGFR For African Americans > 60 (> 60); eGFR For Non-African Americans > 60 (> 60)
[2019-01-25] MEDS: Insulin LISPRO 300 UNITS/3 ML VIAL SQ SCH ×7 (09:59→21:31)
[2019-01-25] MEDS: Sucralfate 1 GM TABLET PO SCH ×4 (09:59→20:10)
[2019-01-25] MEDS: Cholecalciferol (D-3) 1,000 UNIT (25MCG) TABLET PO SCH (10:01)
[2019-01-25] MEDS: Sennosides/Docusate Sodium TABLET PO SCH (10:01)
[2019-01-25] MEDS: FLUoxetine 20 MG CAPSULE PO SCH (10:01)
[2019-01-25] MEDS: Loratadine 10 MG TABLET PO SCH (10:01)
[2019-01-25] MEDS: Multivit/Ca/Min/Fe/FA 1 TAB TABLET PO SCH (10:01)
[2019-01-25] MEDS: Gabapentin 300 MG CAPSULE PO SCH ×3 (10:01→20:10)
[2019-01-25] MEDS: Lisinopril 20 MG TABLET PO SCH (10:01)
[2019-01-25] MEDS: Lactulose Oral Soln 20 GM/30 ML UDC PO SCH ×2 (10:02→20:24)
[2019-01-25] MEDS: Bisacodyl 10 MG RECTAL SUPPOSITORY RC SCH (10:02)
[2019-01-25] MEDS: Etonogestrel [Nexplanon] 68 MG SQ SCH (10:02)
[2019-01-25] MEDS: Insulin DETEMIR 100 UNIT/ML X5UNITS SQ SCH (10:05)
[2019-01-25] MEDS: Cyprohepatdine 4 MG TABLET PO SCH ×3 (10:05→20:32)
[2019-01-25] MEDS: Cyanocobalamin (B-12) 1,000 MCG TABLET PO SCH (10:06)
[2019-01-25 11:27] LABS: ANA IgG by ELISA DETECTED (None Detected)
[2019-01-25 15:38] LABS: ANA HEp-2 IgG IFA <1:80 (<1:80)
[2019-01-25] MEDS ORDERED: Nitroglycerin 0.4 MG TAB.SUBL SL PRN (17:50)
[2019-01-25] MEDS: amLODIPine 5 MG TABLET PO SCH (20:09)
[2019-01-25] MEDS: Latanoprost 2.5 ML BOTTLE RIGHT EYE SCH (20:32)
[2019-01-25] MEDS ORDERED: FLUoxetine 20 MG CAPSULE PO SCH (21:00)
[2019-01-26] MEDS: *HR* Heparin 5,000 UNIT/ML VIAL SQ SCH (05:24)
[2019-01-26] MEDS: Sucralfate 1 GM TABLET PO SCH ×2 (05:51→10:20)
[2019-01-26] MEDS: Levothyroxine 25 MCG TABLET PO SCH (05:51)
[2019-01-26 09:38] LABS: Basophils % 0.7 %; Eosinophils # 0.2 K/mcL (0.0-0.6); Eosinophils % 2.7 %; Hematocrit 36.5 % (35.3-44.9); Hemoglobin 12.2 g/dL (11.5-15.4); Immature Granulocytes % 0.2 % (0-4); Lymphocytes # 2.7 K/mcL (0.6-4.6); Lymphocytes % 48.6 %; Mean Corpuscular HGB Conc 33.4 g/dL (31.6-35.5); Mean Corpuscular Hemoglobin 31.3 pg (28.0-33.3); Mean Corpuscular Volume 93.6 fL (83.0-100.0); Mean Platelet Volume 13.1 fL (9.4-12.4); Monocytes # 0.6 K/mcL (0.0-1.3); Monocytes % 11.4 %; Platelet Count 157 K/mcL (140-400); Red Cell Distribution Width 12.2 % (11.5-14.5); Segmented Neutrophils % 36.4 %; White Blood Count 5.5 K/mcL (4.3-11.1)
[2019-01-26] MEDS: Insulin LISPRO 300 UNITS/3 ML VIAL SQ SCH ×4 (10:07→11:46)
[2019-01-26 10:09] LABS: BUN/Creatinine Ratio 16 (6-26); Blood Urea Nitrogen 13 mg/dL (6-20); Calcium 8.7 mg/dL (8.6-10.3); Carbon Dioxide 24 mEq/L (23-29); Chloride 106 mEq/L (98-107); Glucose 93 mg/dL (70-105); Magnesium 1.9 mg/dL (1.6-2.6); Osmolality,Calculated 284 (280-300); Potassium 3.9 mEq/L (3.5-5.1); Sodium 137 mEq/L (136-145); eGFR For African Americans > 60 (> 60); eGFR For Non-African Americans > 60 (> 60)
[2019-01-26] MEDS: Cholecalciferol (D-3) 1,000 UNIT (25MCG) TABLET PO SCH (10:20)
[2019-01-26] MEDS: Gabapentin 300 MG CAPSULE PO SCH (10:20)
[2019-01-26] MEDS: Cyprohepatdine 4 MG TABLET PO SCH (10:20)
[2019-01-26] MEDS: Cyanocobalamin (B-12) 1,000 MCG TABLET PO SCH (10:20)
[2019-01-26] MEDS: Multivit/Ca/Min/Fe/FA 1 TAB TABLET PO SCH (10:20)
[2019-01-26] MEDS: Loratadine 10 MG TABLET PO SCH (10:20)
[2019-01-26] MEDS: Lactulose Oral Soln 20 GM/30 ML UDC PO SCH (10:21)
[2019-01-26] MEDS: Lisinopril 20 MG TABLET PO SCH (10:21)
[2019-01-26] MEDS: Sennosides/Docusate Sodium TABLET PO SCH (10:21)
[2019-01-26] MEDS: Insulin DETEMIR 100 UNIT/ML X5UNITS SQ SCH (10:22)
[2019-01-26] MEDS: Etonogestrel [Nexplanon] 68 MG SQ SCH (10:22)
[2019-01-26 11:37] VITALS: BP 129/80
== END 2019-01-26 16:27 | disposition home or self-care (01) | DRG 199 ==
LOC: 2NNU 15:47 → EMEROOARM 15:47 → SUATTDRO 22:14 → 2NNU 22:55 → 2ANU 01-21 11:33
PROVIDERS: ADMIT Internal Medicine; ATTEND Pharmacist